=== PATIENT | male | born 1995 | race Two or more races ===

== ENCOUNTER 2020-06-15 18:48 | Emergency (ER) | payer OTHER ==
[~2020-06-15] VITALS: Ht 175.3 cm; Wt 81.7 kg
[2020-06-15 19:25] VITALS: BP 131/78
[2020-06-15] MEDS ORDERED: DIPH,PERTUSS(ACELL),TET VAC/PF 0.5 ML IM-VACC ONE (19:30)
--- NOTE | 2020-06-15 19:42 | NUR ---
NIL X 1
[2020-06-15] MEDS ORDERED: PLEASE ENTER ALLERGIES MC SCH (20:00)
--- NOTE | 2020-06-15 20:02 | NUR ---
[employer]: NIL X 2 WHEN CALLED FOR ROOM.
--- NOTE | 2020-06-15 20:23 | NUR ---
NIL X 3 WHEN CALLED FOR ROOM.
== END 2020-06-15 20:25 | disposition left against medical advice (07) ==
LOC: ED 19:40
DX: S61.211A Laceration without foreign body of left index finger without damage to nail, initial encounter (principal); W26.8XXA Contact with other sharp object(s), not elsewhere classified, initial encounter; Y93.89 Activity, other specified; Y92.89 Other specified places as the place of occurrence of the external cause; Y99.8 Other external cause status
CPT/HCPCS: 99281